=== PATIENT | female | born 1940 | race Two or more races ===

== ENCOUNTER 2022-12-20 06:24 | Day surgery (SDC) | payer OTHER ==
[~2022-12-20] VITALS: Ht 160 cm; Wt 82.1 kg
[~2022-12-20 06:24] MED LIST: ANASTROZOLE1 MG PO; IRBESARTAN-HCT1 EACH PO; SYNTHROID50 MCG PO
== END 2022-12-20 18:25 | disposition home or self-care (01) ==
LOC: CIR.AMB 06:24
PROVIDERS: ATTEND Surgery
DX: D48.62 Neoplasm of uncertain behavior of left breast (principal); N60.92 Unspecified benign mammary dysplasia of left breast; R59.0 Localized enlarged lymph nodes; N60.82 Other benign mammary dysplasias of left breast; R92.0 Mammographic microcalcification found on diagnostic imaging of breast; N60.42 Mammary duct ectasia of left breast; Z20.822 Contact with and (suspected) exposure to COVID-19; Z88.8 Allergy status to other drugs, medicaments and biological substances
CPT/HCPCS: 19301; 38525; 38792; 19281; A9541; L8699

== ENCOUNTER 2023-05-25 15:27 | Emergency (ER) | payer OTHER ==
[~2023-05-25] VITALS: Ht 160 cm; Wt 79.8 kg
[2023-05-25 18:59] LABS: ABG PH 7.461 (7.35-7.45); ABG PO2 63.7 mmHg (80-100); ABG pCO2 35.6 mmHg (35-45); BASE EXCESS 1.4 mmol/l; BICARBONATE 24.8 mmol/l (23-25); SaO2 93.4 %; Tco2 25.9 mmol/l; allen test SATISFACTORY; o2 21 %; puncture site BRADIAL LEFT
[2023-05-25 19:09] LABS: HEMATOCRIT 38.6 % (36.0-45.00); MEAN CELL VOLUME 80.5 fL (80.00-100.00); MEAN CORPUSCULAR HGB CONC 33.5 g/dl (32.0-36.0); PLATELET COUNT 234 K/uL (150-450); RED CELL DISTRIBUTION WIDTH 14.3 % (11.5-14.5)
[2023-05-25 19:40] LABS: CALCIUM 9.3 mg/dL (8.5-10.1); CREATININE SERUM 0.7 mg/dL (0.55-1.02); GFR 80.31; POTASSIUM 3.62 mEq/L (3.5-5.1)
== END 2023-05-25 23:53 | disposition home or self-care (01) ==
LOC: ER 15:28
PROVIDERS: General Practice
DX: J22 Unspecified acute lower respiratory infection (principal); B34.9 Viral infection, unspecified; Z88.8 Allergy status to other drugs, medicaments and biological substances; I10 Essential (primary) hypertension; N63.0 Unspecified lump in unspecified breast; J45.909 Unspecified asthma, uncomplicated
CPT/HCPCS: 36415; 71046; 82803; 94640; 96365; 96366; 99285; J0696; J2920; J7030